=== PATIENT | female | born 1975 | race Caucasian/White ===

== ENCOUNTER 2018-05-12 08:12 | Outpatient (CLI) | payer BC ==
--- NOTE | 2018-05-12 10:00 | HP ---
DATE OF ADMISSION: 05/12/2018 HISTORY OF PRESENT ILLNESS: Ms. Morenita Johnston is a very pleasant 42-year-old who presents to the [facility] for evaluation of a wound of the scalp subsequent to laceration repair in the Emergency D epartment at [facility]. The patient states that she "passed out" at work and was taken to the Emergency Department at [facility]. She states that 5 baldemar were placed to repair the scalp l aceration. She states that 2 days later, she was seen by Dr. Florentino Kwok and told to keep the [facility] clean and dry. She states that 1 week later, the baldemar were discontinued by a nurse at [facility]. She states that she subsequently was seen by her surgeon in [place] who performed her g astric bypass. She states that one of the nurses advised her to dress the scalp wound with Neosporin as the edges were no longer in apposition. The patient states that she was seen by Dr. Neves on 0 04/28/2018 and at this time referred to the [facility] for further evaluation and treatment. The pa teagan states that she was placed on a course of Bactrim by Dr. Neves, which she completed taking as prescribed. PAST MEDICAL HISTORY: 1. Hypothyroidism. 2. Gastroesophageal reflux disease. PAST SURGICAL HISTORY: 1. Gastric bypass. 2. Tubal ligation. 3. Tonsillectomy. 4. Hysterectomy. MEDICATIONS: 1. Vitamin transdermal patches. 2. Synthroid. 3. Protonix. ALLERGIES: PENICILLIN, TORADOL, ASPIRIN. SOCIAL HISTORY: Negative for tobacco or ETOH use. FAMILY HISTORY: Significant for diabetes mellitus. The patient states that her mother was diagnosed with diabetes mellitus. Family history is also significant for coronary artery disease. The patimarj t states that her mother was also diagnosed with coronary artery disease. PHYSICAL EXAMINATION: VITAL SIGNS: Temperature 98.2, pulse 71, respirations 18, blood pressure 116/65. GENERAL: A 42-year-old female lying on table in examination room, in moderate distress. HEENT: Normocephalic. A wound of the scalp is present, which measures approximately 1.2 x 1.0 cm. Granulation tissue is present within the wound margins. Necrotic and nonviable tissue present within the wound margins was debrided with an excisional full-thickness debridement with the use of a curet te. No purulent drainage is associated with the wound. No erythema of the skin surrounding the woun d is present. No maceration of the skin of the periwound is noted. NECK: No nuchal rigidity. CHEST: Clear to auscultation. CARDIOVASCULAR: Regular rate and rhythm. ABDOMEN: Soft. EXTREMITIES: No clubbing or cyanosis. NEUROLOGIC: Grossly nonfocal. ASSESSMENT AND PLAN: 1. Scalp wound subsequent to laceration repair as described above. Dressing changes of Medihoney an d adhesive foam will be initiated today. These dressing changes are to be performed after cleansing and irrigation. The patient will be performing her own dressing changes. No antibiotics will be pre scribed today based upon the appearance of the wound. I will see Ms. Johnston again in one week. The keyon candelaria understands and is in agreement with the preceding treatment plan. The patient states that wor kup of her syncopal episode is in progress. She states that she has recently undergone both MRI and MRA. 2. Hypothyroidism. 3. Gastroesophageal reflux disease.
[2018-05-12] MEDS ORDERED: Sodium Chloride 0.9% 15 ML NEB ONE ×2 (20:10→20:11)
[2018-05-12] MEDS ORDERED: Lidocaine 2% Jelly 5 ML TUBE ONE (20:11)
== END 2018-05-12 08:13 | disposition home or self-care (01) ==
LOC: WCC 08:12
PROVIDERS: ATTEND Family Medicine
DX: S01.01XD Laceration without foreign body of scalp, subsequent encounter (principal); E03.9 Hypothyroidism, unspecified; K21.9 Gastro-esophageal reflux disease without esophagitis
CPT/HCPCS: 11042; 99203; A4218; G0463